=== PATIENT | female | born 1940 | race American Indian/Alaskan Native ===

== ENCOUNTER 2019-04-13 05:22 | Inpatient (IN) | payer MEDICARE ==
[~2019-04-13] VITALS: Ht 152.4 cm; Wt 69.9 kg
[2019-04-13] MEDS ORDERED: HALOPERIDOL LACTATE 5MG/ML VIAL IM ONE (07:00)
[2019-04-13 07:13] LABS: BASOPHILS % 0.6 % (0.0-2.0); EOSINOPHILS % 1.1 % (0.0-5.0); HEMATOCRIT. 30.3 % (36.0-48.0); HEMOGLOBIN. 9.7 g/dL (12.0-16.0); LYMPHOCYTES % 14.3 % (20.0-50.0); MEAN CORPUSCULAR HEMOGLOBIN 33.3 pg (28.0-32.0); MEAN CORPUSCULAR VOLUME 103.7 fL (81.0-99.0); MEAN PLATELET VOLUME 8.9 fl (7.4-10.4); MONOCYTES % 7.3 % (2.0-8.0); NEUTROPHILS % 76.7 % (40.0-76.0); PLATELET 132 x1000/uL (130-400); RED BLOOD CELL COUNT 2.93 mill/uL (4.2-5.4); RED CELL DISTRIBUTION WIDTH 21.8 % (11.6-14.6)
[2019-04-13 07:20] LABS: CHLORIDE 99 mEq/L (98-107)
[2019-04-13 07:24] LABS: ETHANOL BLOOD < 10 mg/dL
[2019-04-13] MEDS ORDERED: LORAZEPAM 2MG/ML CPJ IV ONE (07:45)
[2019-04-13 08:15] LABS: CLARITY URINE CLOUDY (CLEAR); COLOR URINE DARK YELLOW (YELLOW); KETONES URINE TRACE (NEGATIVE); LEUKOCYTE ESTERASE URINE NEGATIVE (NEGATIVE); NITRITE URINE NEGATIVE (NEGATIVE); OCCULT BLOOD URINE NEGATIVE (NEGATIVE); PH URINE 5.5 (4.5-8.0); PROTEIN URINE 2+ (NEGATIVE); SPECIFIC GRAVITY URINE 1.024 (1.005-1.030); UROBILINOGEN URINE 0.2 E.U./dL (0.2-1.0)
[2019-04-13 08:34] LABS: *AMPHETAMINES SCREEN URINE NEGATIVE (NEGATIVE); *BARBITURATES SCREEN URINE NEGATIVE (NEGATIVE); *BENZODIAZEPINES SCREEN URINE NEGATIVE (NEGATIVE); *COCAINE SCREEN URINE NEGATIVE (NEGATIVE); METHADONE URINE SCREEN NEGATIVE (NEGATIVE); OPIATES URINE SCREEN PRESUMTIVE POSITIVE (NEGATIVE)
[2019-04-13 08:35] LABS: CANNABINOID URINE SCREEN NEGATIVE (NEGATIVE); PHENCYCLIDINE URINE SCREEN NEGATIVE (NEGATIVE)
[2019-04-13 09:06] LABS: BG BASE EXCESS -1.6 mmol/L (-2.0-2.0); BG DEOXYHEMOGLOBIN 3.6 % (0.0-5.0); BG FRACTION INSPIRED OXYGEN 32; BG HCO3 ACT 22.8 mmol/L (22.0-26.0); BG METHEMOGLOBIN 0.1 % (0.0-1.5); BG OXYGEN SATURATION 96.4 % (92.0-98.5); BG OXYHEMOGLOBIN 95.3 % (94.0-97.0); BG PH 7.407 (7.350-7.450); BG PO2 86.6 mmHg (75.0-100.0); BG SAMPLE SITE RIGHT BRACHIAL; BG TOTAL HEMOGLOBIN 10.4 g/dL (12.0-18.0); BG VENT MODE NASAL CANNULA
[2019-04-13 12:09] VITALS: BP 115/52
[2019-04-13 12:30] VITALS: BP 112/57
[2019-04-13] MEDS ORDERED: ASPI-1393 PO (13:08)
[2019-04-13] MEDS ORDERED: COR6 PO (13:08)
[2019-04-13] MEDS ORDERED: GABA-531 PO (13:10)
[2019-04-13] MEDS ORDERED: OXYC-100 PO (13:18)
[2019-04-13] MEDS ORDERED: NEPVIT PO (13:18)
[2019-04-13] MEDS ORDERED: ATOR10TA PO (13:18)
[2019-04-13] MEDS ORDERED: ALLO100T PO (13:18)
[2019-04-13] MEDS ORDERED: LEVO112T7 PO (13:18)
[2019-04-13] MEDS ORDERED: AMPI2VIA IV (13:18)
[2019-04-13] MEDS ORDERED: ENOXAPARIN 40MG/0.4ML SYR SUBCUT SCH (13:45)
[2019-04-13] MEDS ORDERED: ACETAMINOPHEN 325MG TABLET PO PRN (13:45)
[2019-04-13] MEDS ORDERED: LEVOFLOXACIN 500MG PREMIX 100 ML IV SCH ×2 (13:45→16:00)
[2019-04-13] MEDS ORDERED: GABAPENTIN 300MG CAPSULE PO SCH (15:00)
[2019-04-13] MEDS ORDERED: ENOXAPARIN 30MG/0.3ML SYR SUBCUT SCH (15:00)
[2019-04-13] MEDS ORDERED: LORAZEPAM 1MG TABLET PO PRN (15:30)
[2019-04-13 16:00] VITALS: BP 113/40
[2019-04-13] MEDS: CARVEDILOL 6.25 MG TABLET PO SCH (16:00)
[2019-04-13] MEDS ORDERED: CEFTRIAXONE 2 G PREMIX 50 ML IV SCH (16:00)
[2019-04-13] MEDS: LEVOTHYROXINE SODIUM 112MCG TABLET PO SCH (16:00)
[2019-04-13] MEDS: DEXTROSE 5% WATER 1,000 ML IV SCH (16:17)
[2019-04-13] MEDS ORDERED: DEXTROSE 50% WATER 50ML SYRINGE IV PRN (16:45)
[2019-04-13] MEDS: BLOOD SUGAR DIAGNOSTIC STRIP TEST SCH ×2 (17:10→21:00)
[2019-04-13] MEDS: AMPICILLIN 2,000 MG in SODIUM CHLORIDE 0.9% 100 ML IV SCH (17:38)
[2019-04-13] MEDS: INSULIN LISPRO 100 UNITS/ML SUBCUT SCH ×2 (17:40→21:00)
[2019-04-13] MEDS ORDERED: CEFTRIAXONE 2 G in DEXTROSE 5% WATER 50 ML IV SCH (18:00)
[2019-04-13 20:00] VITALS: BP 103/54
[2019-04-13] MEDS: ATORVASTATIN CALCIUM 10MG TABLET PO SCH (21:00)
[2019-04-13] MEDS ORDERED: EPOETIN ALFA 4000UNITS/ML VIAL SUBCUT SCH (21:00)
[2019-04-14] VITALS (41 sets, daily range): BP systolic 85–203; BP diastolic 34–169
[2019-04-14] MEDS: AMPICILLIN 2,000 MG in SODIUM CHLORIDE 0.9% 100 ML IV SCH ×3 (01:53→17:00)
[2019-04-14] MEDS: BLOOD SUGAR DIAGNOSTIC STRIP TEST SCH ×4 (06:02→20:26)
[2019-04-14] MEDS: LEVOTHYROXINE SODIUM 112MCG TABLET PO SCH (06:02)
[2019-04-14] MEDS: INSULIN LISPRO 100 UNITS/ML SUBCUT SCH ×4 (06:04→20:39)
[2019-04-14 08:32] LABS: BASOPHILS % 0.3 % (0.0-2.0); EOSINOPHILS % 0.6 % (0.0-5.0); HEMATOCRIT. 31.2 % (36.0-48.0); HEMOGLOBIN. 10.4 g/dL (12.0-16.0); LYMPHOCYTES % 12.8 % (20.0-50.0); MEAN CORPUSCULAR HEMOGLOBIN 33.8 pg (28.0-32.0); MEAN CORPUSCULAR VOLUME 101.5 fL (81.0-99.0); MEAN PLATELET VOLUME 9.2 fl (7.4-10.4); NEUTROPHILS % 80.3 % (40.0-76.0); PLATELET 138 x1000/uL (130-400); RED BLOOD CELL COUNT 3.08 mill/uL (4.2-5.4); RED CELL DISTRIBUTION WIDTH 21.4 % (11.6-14.6)
[2019-04-14 08:45] LABS: PHOSPHORUS 3.9 mg/dL (2.5-4.9)
[2019-04-14] MEDS: ALLOPURINOL 100 MG TABLET PO SCH (08:52)
[2019-04-14] MEDS: CARVEDILOL 6.25 MG TABLET PO SCH (08:52)
[2019-04-14] MEDS ORDERED: ASPIRIN 81MG EC TABLET PO SCH (09:00)
[2019-04-14] MEDS: MORPHINE SULFATE 2 MG/ML CPJ (NOT FOR IM USE) IV PRN ×2 (09:19→23:38)
[2019-04-14] MEDS ORDERED: MORPHINE SULFATE 2 MG/ML CPJ (NOT FOR IM USE) IV NR (09:30)
[2019-04-14] MEDS: CEFTRIAXONE 2 G in DEXTROSE 5% WATER 50 ML IV SCH (13:13)
[2019-04-14] MEDS: DEXTROSE 5% WATER 1,000 ML IV SCH (13:14)
[2019-04-14] MEDS ORDERED: LEVOTHYROXINE SODIUM 125MCG TABLET PO SCH (14:00)
[2019-04-14] MEDS: LEVOTHYROXINE SODIUM 100 MCG/ VIAL IV SCH (18:26)
[2019-04-14] MEDS: ATORVASTATIN CALCIUM 10MG TABLET PO SCH (20:26)
[2019-04-14] MEDS: FAMOTIDINE 20MG/2ML VIAL IV SCH (20:30)
[2019-04-15] VITALS (33 sets, daily range): BP systolic 87–151; BP diastolic 25–103
[2019-04-15] MEDS: AMPICILLIN 2,000 MG in SODIUM CHLORIDE 0.9% 100 ML IV SCH ×3 (00:49→16:35)
[2019-04-15] MEDS: CEFTRIAXONE 2 G in DEXTROSE 5% WATER 50 ML IV SCH ×2 (01:48→16:35)
[2019-04-15] MEDS: MORPHINE SULFATE 2 MG/ML CPJ (NOT FOR IM USE) IV PRN ×2 (03:03→10:07)
[2019-04-15 05:16] LABS: BASOPHILS % 0.4 % (0.0-2.0); HEMATOCRIT. 30.6 % (36.0-48.0); LYMPHOCYTES % 11.9 % (20.0-50.0); MEAN CORPUSCULAR HEMOGLOBIN 33.5 pg (28.0-32.0); MEAN PLATELET VOLUME 9.6 fl (7.4-10.4); MONOCYTES % 6.2 % (2.0-8.0); NEUTROPHILS % 80.5 % (40.0-76.0); PLATELET 125 x1000/uL (130-400); RED BLOOD CELL COUNT 2.97 mill/uL (4.2-5.4); RED CELL DISTRIBUTION WIDTH 21.7 % (11.6-14.6)
[2019-04-15 05:44] LABS: PHOSPHORUS 4.4 mg/dL (2.5-4.9)
[2019-04-15] MEDS: BLOOD SUGAR DIAGNOSTIC STRIP TEST SCH ×4 (06:03→20:56)
[2019-04-15] MEDS: INSULIN LISPRO 100 UNITS/ML SUBCUT SCH ×4 (06:52→21:00)
[2019-04-15] MEDS: DEXTROSE 5% WATER 1,000 ML IV SCH (08:16)
[2019-04-15] MEDS: LEVOTHYROXINE SODIUM 100 MCG/ VIAL IV SCH (08:22)
[2019-04-15] MEDS: CARVEDILOL 6.25 MG TABLET PO SCH (08:34)
[2019-04-15] MEDS: ALLOPURINOL 100 MG TABLET PO SCH (08:35)
[2019-04-15] MEDS ORDERED: LEVOFLOXACIN 250MG PREMIX 50 ML IV SCH (11:00)
[2019-04-15] MEDS: ATORVASTATIN CALCIUM 10MG TABLET PO SCH (20:10)
[2019-04-15] MEDS: FAMOTIDINE 20MG/2ML VIAL IV SCH (20:56)
[2019-04-16] VITALS (46 sets, daily range): BP systolic 87–161; BP diastolic 42–109
[2019-04-16] MEDS: AMPICILLIN 2,000 MG in SODIUM CHLORIDE 0.9% 100 ML IV SCH ×3 (00:10→17:04)
[2019-04-16] MEDS: CEFTRIAXONE 2 G in DEXTROSE 5% WATER 50 ML IV SCH ×2 (01:24→14:21)
[2019-04-16] MEDS: BLOOD SUGAR DIAGNOSTIC STRIP TEST SCH ×4 (06:00→20:51)
[2019-04-16] MEDS: INSULIN LISPRO 100 UNITS/ML SUBCUT SCH ×4 (06:20→20:51)
[2019-04-16 06:39] LABS: BASOPHILS % 0.2 % (0.0-2.0); EOSINOPHILS % 0.8 % (0.0-5.0); HEMATOCRIT. 29.4 % (36.0-48.0); HEMOGLOBIN. 9.7 g/dL (12.0-16.0); MEAN CORPUSCULAR HEMOGLOBIN 33.8 pg (28.0-32.0); MEAN PLATELET VOLUME 9.4 fl (7.4-10.4); MONOCYTES % 7.4 % (2.0-8.0); NEUTROPHILS % 81.6 % (40.0-76.0); PLATELET 124 x1000/uL (130-400); RED BLOOD CELL COUNT 2.88 mill/uL (4.2-5.4); RED CELL DISTRIBUTION WIDTH 21.4 % (11.6-14.6)
[2019-04-16 07:00] LABS: PHOSPHORUS 3.3 mg/dL (2.5-4.9)
[2019-04-16] MEDS: ALLOPURINOL 100 MG TABLET PO SCH (09:00)
[2019-04-16] MEDS: CARVEDILOL 6.25 MG TABLET PO SCH (09:00)
[2019-04-16] MEDS: LEVOTHYROXINE SODIUM 100 MCG/ VIAL IV SCH (09:02)
[2019-04-16] MEDS: DEXT 5%/0.9% NACL 1,000 ML IV SCH (09:02)
[2019-04-16] MEDS: ATORVASTATIN CALCIUM 10MG TABLET PO SCH (20:45)
[2019-04-16] MEDS: MORPHINE SULFATE 2 MG/ML CPJ (NOT FOR IM USE) IV PRN (20:57)
[2019-04-16] MEDS: FAMOTIDINE 20MG/2ML VIAL IV SCH (20:57)
[2019-04-17] VITALS (25 sets, daily range): BP systolic 104–143; BP diastolic 50–97
[2019-04-17] MEDS: AMPICILLIN 2,000 MG in SODIUM CHLORIDE 0.9% 100 ML IV SCH ×2 (00:49→08:10)
[2019-04-17] MEDS: CEFTRIAXONE 2 G in DEXTROSE 5% WATER 50 ML IV SCH (01:25)
[2019-04-17] MEDS: DEXT 5%/0.9% NACL 1,000 ML IV SCH (05:25)
[2019-04-17] MEDS: BLOOD SUGAR DIAGNOSTIC STRIP TEST SCH (05:49)
[2019-04-17 05:52] LABS: BASOPHILS % 0.2 % (0.0-2.0); EOSINOPHILS % 0.8 % (0.0-5.0); HEMATOCRIT. 30.7 % (36.0-48.0); HEMOGLOBIN. 10.1 g/dL (12.0-16.0); LYMPHOCYTES % 13.2 % (20.0-50.0); MEAN CORPUSCULAR HEMOGLOBIN 33.6 pg (28.0-32.0); MEAN CORPUSCULAR VOLUME 102.7 fL (81.0-99.0); MEAN PLATELET VOLUME 8.6 fl (7.4-10.4); MONOCYTES % 9.2 % (2.0-8.0); NEUTROPHILS % 76.6 % (40.0-76.0); PLATELET 86 x1000/uL (130-400); RED BLOOD CELL COUNT 2.99 mill/uL (4.2-5.4); RED CELL DISTRIBUTION WIDTH 22.1 % (11.6-14.6)
[2019-04-17] MEDS: INSULIN LISPRO 100 UNITS/ML SUBCUT SCH (06:21)
[2019-04-17] MEDS: MORPHINE SULFATE 2 MG/ML CPJ (NOT FOR IM USE) IV PRN (06:22)
[2019-04-17] MEDS ORDERED: MORPHINE SULFATE 2 MG/ML CPJ (NOT FOR IM USE) IV PRN (08:00)
[2019-04-17] MEDS: LEVOTHYROXINE SODIUM 100 MCG/ VIAL IV SCH (08:10)
[2019-04-17] MEDS: ALLOPURINOL 100 MG TABLET PO SCH (08:11)
[2019-04-17] MEDS: CARVEDILOL 6.25 MG TABLET PO SCH (08:11)
[2019-04-17 12:28] LABS: PLATELET ESTIMATE DECREASED
== END 2019-04-17 11:45 | disposition short-term general hospital (02) | DRG 871 ==
LOC: ER 05:22 → EDBEDREQTM 10:19 → EDBEDREQ 10:19 → 8WST 10:26 → ENRESERV 10:58 → MICUSO 04-14 00:50
PROVIDERS: ADMIT Ophthalmology; ATTEND Ophthalmology
PROC: 5A1D70Z Performance of Urinary Filtration, Intermittent, Less than 6 Hours Per Day (ICD-10-PCS; principal; 2019-04-13)
PROC: 5A1D70Z Performance of Urinary Filtration, Intermittent, Less than 6 Hours Per Day (ICD-10-PCS; 2019-04-15)
PROC: 5A1D70Z Performance of Urinary Filtration, Intermittent, Less than 6 Hours Per Day (ICD-10-PCS; 2019-04-17)
DX: A41.9 Sepsis, unspecified organism (principal); G93.41 Metabolic encephalopathy; N18.6 End stage renal disease; K68.12 Psoas muscle abscess; G06.2 Extradural and subdural abscess, unspecified; M46.26 Osteomyelitis of vertebra, lumbar region; E87.1 Hypo-osmolality and hyponatremia; I13.2 Hypertensive heart and chronic kidney disease with heart failure and with stage 5 chronic kidney disease, or end stage renal disease; N25.81 Secondary hyperparathyroidism of renal origin; E78.5 Hyperlipidemia, unspecified; D69.6 Thrombocytopenia, unspecified; D63.8 Anemia in other chronic diseases classified elsewhere; E03.9 Hypothyroidism, unspecified; E11.22 Type 2 diabetes mellitus with diabetic chronic kidney disease; E11.69 Type 2 diabetes mellitus with other specified complication; E83.39 Other disorders of phosphorus metabolism; I25.10 Atherosclerotic heart disease of native coronary artery without angina pectoris; I48.0 Paroxysmal atrial fibrillation; I50.9 Heart failure, unspecified; M46.46 Discitis, unspecified, lumbar region; T42.8X5A Adverse effect of antiparkinsonism drugs and other central muscle-tone depressants, initial encounter; T39.1X5A Adverse effect of 4-Aminophenol derivatives, initial encounter; I95.9 Hypotension, unspecified; M48.02 Spinal stenosis, cervical region; M48.04 Spinal stenosis, thoracic region; M48.061 Spinal stenosis, lumbar region without neurogenic claudication; Z79.01 Long term (current) use of anticoagulants; Z79.4 Long term (current) use of insulin; Z87.440 Personal history of urinary (tract) infections; Z88.8 Allergy status to other drugs, medicaments and biological substances; Z95.1 Presence of aortocoronary bypass graft; Z99.2 Dependence on renal dialysis; Z79.899 Other long term (current) drug therapy; Z79.82 Long term (current) use of aspirin; I25.2 Old myocardial infarction; Z86.73 Personal history of transient ischemic attack (TIA), and cerebral infarction without residual deficits; Z98.42 Cataract extraction status, left eye; Z98.41 Cataract extraction status, right eye; Y92.89 Other specified places as the place of occurrence of the external cause
CPT/HCPCS: 36415; 36600; 70551; 71045; 72141; 72146; 72148; 80048; 80305; 80320; 81003; 82140; 82375; 82805; 82962; 83735; 84100; 84443; 84484; 85651; 93005; 93306; 93970; J0290; J0696; J0885; J1630; J1815; J1956; J2060; J2270; J3490; J7042; J7050; J7060; J7070; G0480